=== PATIENT | male | born 1990 | race Caucasian/White ===

== ENCOUNTER 2024-07-21 20:19 | Emergency (ER) | payer OTHER, SELFPAY ==
[2024-07-21 20:28] VITALS: BP 146/78; PULSE 63; RESP 15; TEMP 36.3; O2SAT 98
--- NOTE | 2024-07-21 23:41 | ED.WOUNDLAC ---
HPI - Wound/Laceration General Chief Complaint: Wound/Laceration Stated Complaint: thumb lac, right hand Time Seen by Provider: 07/21/24 23:13 Source: patient Mode of arrival: ambulatory Limitations: no limitations History of Present Illness HPI narrative: This is a 34 year old male that presents to the ER for laceration to the right thumb. Reports he was doing dishes and accidentally cut his thumb. He is up-to-date on tetanus vaccination. Denies decreased range of motion or numbness. Related Data Allergies Allergy/AdvReac Type Severity Reaction Status Date / Time No Known Allergies Allergy Verified 07/21/24 20:32 Review of Systems Review of Systems: CONSTITUTIONAL: Denies fever SKIN: Reports laceration All systems reviewed & are unremarkable except as noted in HPI and below PMFSH Past Medical History Medical History (Updated 07/21/24 @ 23:45 by Janie Webster PA-C) No active medical problems Social History Social History Smoking status: Never smoker Alcohol intake: current Exam Narrative: GENERAL: Well-appearing, well-nourished, and in no acute distress. HEAD: Normocephalic, atraumatic. EYES: EOMI. EXTREMITIES: Normal range of motion. No edema. 1 cm superficial laceration to the right thumb SKIN: Warm, dry, no rash. NEURO: No focal deficits. Alert and oriented x3. PSYCH: Normal mood and affect Course Course Emergency Course: patient educated on further wound care Vital Signs Vital signs: Vital Signs Temperature 97.4 F L 07/21/24 20:28 Pulse Rate 63 07/21/24 20:28 Respiratory Rate 15 07/21/24 20:28 Blood Pressure 146/78 H 07/21/24 20:28 Pulse Oximetry 98 07/21/24 20:28 Oxygen Delivery Room Air 07/21/24 20:28 Temperature 97.4 F L 07/21/24 20:28 Pulse Rate 63 07/21/24 20:28 Respiratory Rate 15 07/21/24 20:28 Blood Pressure 146/78 H 07/21/24 20:28 Pulse Oximetry 98 07/21/24 20:28 Oxygen Delivery Room Air 07/21/24 20:28 MDM - Wound/Laceration MDM Narrative Medical decision making narrative: Patient presents to the emergency department for laceration to the right thumb. Wound was superficial. Steri-Strips applied as well as bandage. He is up to date on tetanus vaccination. Educated on further wound care Differential Diagnosis Differential diagnosis: Likely laceration, abrasion and avulsion of skin Critical Care Time Critical Care Time Critical Care Time: No Discharge Plan Discharge Clinical Impression: Laceration Patient Disposition: Home, Self-Care Condition: Stable Instructions: Laceration (ED), Steristrips (ED) Additional Instructions: Return to the emergency department if you experience fever, redness or swelling of your wound, abnormal drainage from your wound, or any other symptoms that are concerning to you. You may let the water run over the wound in the shower. Apply antibiotic ointment daily. Do not soak the wound. Clean with mild soap and water daily Follow-up with primary care doctor if needed Patient Language: Albanian Follow-up/Referrals: PHYSICIAN,BOX SEALING MACHINE OPERATOR [Primary Care Provider] - Ag Cool MD [Physician] -
[2024-07-21 23:46] VITALS: BP 137/82; PULSE 70; RESP 14; O2SAT 99
== END 2024-07-22 00:04 | disposition home or self-care (01) ==
LOC: ANHED 23:46
PROVIDERS: Emergency Provider Physician Assistant
DX: S61.011A Laceration without foreign body of right thumb without damage to nail, initial encounter (principal); W26.0XXA Contact with knife, initial encounter; Y93.G1 Activity, food preparation and clean up
CPT/HCPCS: 99282